=== PATIENT | male | born 1955 | race Caucasian/White ===

== ENCOUNTER 2018-05-16 17:28 | Emergency (ER) | payer OTHER ==
[~2018-05-16] VITALS: Ht 162.6 cm; Wt 65.3 kg
[2018-05-16 17:35] VITALS: Ht 162.6 cm; Wt 65.3 kg
[2018-05-16] MEDS ORDERED: IBUPROFEN 800 MG TAB PO ONE (18:30)
[2018-05-16] MEDS ORDERED: IBUP-1542 PO (19:24)
--- NOTE | 2018-05-16 19:53 | ERD ---
ER Documentation Chief Complaint Chief Complaint possible dislocation right shoulder s/p fall HPI Patient is a 63-year-old male with diabetes who presents with right shoulder pain. He said that he was running and fell onto his right shoulder. He has had no treatment as of yet. This happened 50 minutes ago. The patient is right- handed. Upon review of old medical records this is the patient's first visit to the emergency department. ROS All systems reviewed and are negative except as per history of present illness. Medications Home Meds Active Scripts Ibuprofen* (Motrin*) 600 Mg Tab, 600 MG PO Q6H PRN for PAIN AND OR ELEVATED TEMP, #30 TAB Prov:BEAU ACBRAL MD 05/16/18 Allergies Allergies: Coded Allergies: No Known Allergy (Unverified , 05/16/18) PMhx/Soc Medical and Surgical Hx: pt denies Surgical Hx History of Surgery: No Anesthesia Reaction: No Hx Neurological Disorder: No Hx Respiratory Disorders: No Hx Cardiac Disorders: No Hx Psychiatric Problems: No Hx Miscellaneous Medical Probl: Yes (DMII) Hx Alcohol Use: No Hx Substance Use: No Hx Tobacco Use: No Smoking Status: Never smoker FmHx Family History: No diabetes Physical Exam Vitals Vital Signs Date Temp Pulse Resp B/P (MAP) Pulse Ox O2 O2 Flow FiO2 Time Delivery Rate 05/16/18 98.1 106 18 111/84 97 17:35 (93) Physical Exam Const: No acute distress Head: Atraumatic Eyes: Normal Conjunctiva ENT: Normal External Ears, Nose and Mouth. Neck: Full range of motion. No meningismus. Resp: Clear to auscultation bilaterally Cardio: Regular rate and rhythm, no murmurs Abd: Soft, non tender, non distended. Normal bowel sounds Skin: No petechiae or rashes Back: No midline or flank tenderness Ext: AC joint on the right shoulder is elevated compared to the left, no obvious shoulder dislocation Neur: Awake and alert, all 3 nerve roots of the right upper extremity are intact Psych: Normal Mood and Affect Results 24 hrs Current Medications Medications Dose Sig/Fiordaliza Start Time Status Last (Trade) Ordered Route PRN Stop Time Admin Dose Reason Admin Ibuprofen 800 mg ONCE ONCE 05/16/18 DC 05/16/18 (Motrin) PO 18:30 18:24 05/16/18 18:31 Procedures/MDM X-ray of the right shoulder shows AC joint separation per radiology. Splint Note Type: Shoulder immobilizer Location: Right upper extremity Indication: AC joint separation Splint Assessment: Neurovascularly intact post splint placement with good fit. Patient is a 63-year-old male with diabetes who presents with a trip and fall. He has a right-sided AC joint separation. I do not believe the patient has other serious traumatic injury. The patient was placed in a shoulder immobilizer. The patient will be discharged and can follow-up with Dr. Meadwos from orthopedic surgery within 1 week. Patient can return sooner for any worsening symptoms. Departure Diagnosis: Primary Impression: Acromioclavicular joint separation Encounter type: initial encounter Laterality: right Qualified Codes: S43.101A - Unspecified dislocation of right acromioclavicular joint, initial encounter Additional Impression: Shoulder pain Chronicity: acute Laterality: right Qualified Codes: M25.511 - Pain in right shoulder Condition: Fair Patient Instructions: Ac Joint Sprain Referrals: SHEY MEADOWS MD Additional Instructions: Llame al doctor MARGE y lorraine audrey JOSE PARA DENTRO DE 1-2 REYES.Dgale a la secretaria que nosotros le instruimos hacer esta jose.Avise o llame si mayo condicin se empeora antes de la jose. Regresa aqui si peor o no mejor. BEAU CABRAL MD May 16, 2018 19:53
[2018-05-16 19:57] VITALS: BP 130/76; PULSE 88; RESP 15
== END 2018-05-16 20:00 | disposition home or self-care (01) ==
LOC: E/R 17:28
DX: S43.101A Unspecified dislocation of right acromioclavicular joint, initial encounter (principal); E11.9 Type 2 diabetes mellitus without complications; W18.39XA Other fall on same level, initial encounter; Y92.9 Unspecified place or not applicable
CPT/HCPCS: 29105; 73030; Z7502; Z7610

== ENCOUNTER 2018-06-24 04:09 | Inpatient (IN) | payer OTHER ==
[2018-06-24] VITALS (18 sets, daily range): BP systolic 104–154; BP diastolic 62–84; PULSE 9–113; RESP 14–28; Ht 160 cm; Wt 69.2 kg
[~2018-06-24] VITALS: Ht 160 cm; Wt 69.2 kg
[~2018-06-24 04:09] MED LIST: IBUP-1542 PO
[2018-06-24] MEDS ORDERED: ONDANSETRON 4 MG INJ IV ONE (06:26)
--- NOTE | 2018-06-24 06:40 | ERD ---
ER Documentation Chief Complaint Chief Complaint abdominal pain since yesterday HPI This is a 63-year-old male with a past medical history of hyperlipidemia, prediabetes who is presenting with 1 day of progressive worsening epigastric and right sided abdominal pain. The patient reports last eating an Irish sub- sandwich from [employer] yesterday. He does not recall eating anything else out of the ordinary. The patient's pain developed a few hours later. The patient describes the pain as waxing and waning, moderate, cramping and aching. The patient's pain is in the right upper and lower abdomen in addition to the epigastrium. The patient endorses nausea with one episode of clear vomiting yesterday. He denies constipation or diarrhea. He denies any black or bloody or tarry stools. He denies any hematemesis or hemoptysis. He denies any dysuria or hematuria or urgency or frequency. The patient denies fever or chills. The patient has had no headache or vision changes. The patient does not endorse neck or back pain. The patient denies lightheadedness or dizziness. The patient has had no chest pain or trouble br eathing. The patient has had no focal deficits. The patient has had no weakness or numbness or tingling to the face or extremities. ROS All systems reviewed and are negative except as per history of present illness. Medications Home Meds Discontinued Scripts Ibuprofen* (Motrin*) 600 Mg Tab, 600 MG PO Q6H PRN for PAIN AND OR ELEVATED TEMP, #30 TAB Prov:BEAU CABRAL MD 05/16/18 Allergies Allergies: Coded Allergies: No Known Allergy (Unverified , 06/24/18) PMhx/Soc History of Surgery: No Anesthesia Reaction: No Hx Neurological Disorder: No Hx Respiratory Disorders: No Hx Cardiac Disorders: Yes (Prediabetes, hyperlipidemia) Hx Psychiatric Problems: No Hx Miscellaneous Medical Probl: No Hx Alcohol Use: Yes (Occasional) Hx Substance Use: No Hx Tobacco Use: No Smoking Status: Never smoker FmHx Family History: No diabetes Physical Exam Vitals Vital Signs Date Temp Pulse Resp B/P (MAP) Pulse Ox O2 O2 Flow FiO2 Time Delivery Rate 06/24/18 78 14 149/78 98 Room Air 08:50 (101) 06/24/18 66 14 144/77 98 Room Air 05:45 (99) 06/24/18 63 15 148/75 98 Room Air 05:00 (99) 06/24/18 98.3 63 18 160/88 99 04:12 (112) Physical Exam Const: No apparent distress, well-developed, well-nourished Head: Normocephalic, Atraumatic Eyes: Normal Conjunctiva. Extraocular movements intact. Pupils equal, round and reactive to light ENT: Normal External Ears, Nose and Mouth. Neck: Full range of motion. No meningismus. Resp: Clear to auscultation bilaterally, No wheezes, rales or rhonchi Cardio: Regular rate and rhythm. No murmurs, rubs or gallops Abd: Soft, non distended. Right-sided abdominal tenderness. No guarding or rebound. Normal bowel sounds Skin: No petechiae or rashes Back: No midline tenderness. No CVA tenderness. Ext: No cyanosis, or edema Neur: Awake and alert, oriented 4. Cranial nerves intact. No facial droop. Normal strength, sensation and coordination. Psych: Normal Mood and Affect Result Diagram: 06/24/1853206/24/18 0533 Results 24 hrs Laboratory Tests Test 06/24/18 05:33 White Blood Count 5.7 10^3/ul Red Blood Count 4.96 10^6/ul Hemoglobin 13.7 g/dl Hematocrit 42.0 % Mean Corpuscular Volume 84.7 fl Mean Corpuscular Hemoglobin 27.6 pg Mean Corpuscular Hemoglobin Concent 32.6 g/dl Red Cell Distribution Width 13.8 % Platelet Count 214 10^3/UL Mean Platelet Volume 10.3 fl Immature Granulocytes % 0.700 % Neutrophils % 75.1 % Lymphocytes % 17.7 % Monocytes % 5.3 % Eosinophils % 0.5 % Basophils % 0.7 % Nucleated Red Blood Cells % 0.0 /100WBC Immature Granulocytes # 0.040 10^3/ul Neutrophils # 4.3 10^3/ul Lymphocytes # 1.0 10^3/ul Monocytes # 0.3 10^3/ul Eosinophils # 0.0 10^3/ul Basophils # 0.0 10^3/ul Nucleated Red Blood Cells # 0.0 10^3/ul Urine Color YELLOW Urine Clarity CLEAR Urine pH 7.0 Urine Specific [place] 1.024 Urine Ketones NEGATIVE mg/dL Urine Nitrite NEGATIVE mg/dL Urine Bilirubin NEGATIVE mg/dL Urine Urobilinogen NEGATIVE mg/dL Urine Leukocyte Esterase NEGATIVE Angel/ul Urine Hemoglobin NEGATIVE mg/dL Urine Glucose NEGATIVE mg/dL Urine Total Protein NEGATIVE mg/dl Sodium Level 139 mmol/L Potassium Level 3.7 mmol/L Chloride Level 100 mmol/L Carbon Dioxide Level 27 mmol/L Anion Gap 12 Blood Urea Nitrogen 16 mg/dl Creatinine 0.96 mg/dl Est Glomerular Filtrat Rate mL/min > 60 mL/min Glucose Level 140 mg/dl Calcium Level 9.3 mg/dl Total Bilirubin 0.2 mg/dl Direct Bilirubin 0.00 mg/dl Indirect Bilirubin 0.2 mg/dl Aspartate Amino Transf (AST/SGOT) 25 IU/L Alanine Aminotransferase (ALT/SGPT) 40 IU/L Alkaline Phosphatase 54 IU/L Total Protein 7.5 g/dl Albumin 4.3 g/dl Globulin 3.20 g/dl Albumin/Globulin Ratio 1.34 Lipase 94 U/L Current Medications Medications Dose Sig/Fiordaliza Start Time Status Last (Trade) Ordered Route PRN Stop Time Admin Dose Reason Admin Ondansetron 4 mg ONCE ONCE 06/24/18 DC 06/24/18 HCl (Zofran IV 06:26 07:06 Inj) 06/24/18 06:27 Sodium 1,000 ml @ Q1H ONCE 06/24/18 DC 06/24/18 Chloride 1,000 mls/hr IV 07:00 07:06 06/24/18 07:59 Famotidine 20 mg ONCE ONCE 06/24/18 DC 06/24/18 (Pepcid Iv) IV 07:00 07:06 06/24/18 07:01 40 ml ONCE ONCE 06/24/18 DC 06/24/18 Miscellaneous PO 07:00 07:05 Medication 06/24/18 07:01 (Gi Cocktail (2)) Morphine 4 mg ONCE STAT 06/24/18 DC 06/24/18 Sulfate IV 07:39 08:47 (morphine) 06/24/18 07:40 Piperacillin 100 ml @ ONCE ONCE 06/24/18 DC 06/24/18 Sod/ 200 mls/hr IVPB 08:00 08:47 Tazobactam 06/24/18 08:29 Sod Ondansetron 4 mg BRIDGE ORDER 06/24/18 HCl (Zofran PRN IV 09:30 06/25/18 Inj) NAUSEA/VOMITI 09:29 NG 650 mg ER BRIDGE 06/24/18 Acetaminophen PRN PO 09:30 06/25/18 (Tylenol .MILD PAIN 09:29 Tab) 1-3 OR TEMP Procedures/MDM MDM The patient's presentation warrants further investigation. Previous medical records, if available, were reviewed. LABS The patient's laboratory testing was obtained and reviewed. No emergent treatment was required unless described below. CBC: No E/o of systemic infection or severe anemia or thrombocytopenia. Mild normocytic anemia, nonemergent. Chemistry: No E/o severe acidosis or alkalosis or renal failure or liver disease or diabetic ketoacidosis. No evidence of obstructive cholestatic liver disease. Lipase: No E/o pancreatitis Urine: No E/o acute infection or hematuria IMAGING Imaging and Radiology interpretation reviewed. CT Abd/Pelvis FINDINGS: LUNG BASES: Slight bibasilar atalectasis. HEART: Top normal heart size. ABDOMEN: LIVER: 1.6 cm probable cyst in the lateral liver. GALLBLADDER AND BILE DUCTS: Unremarkable No calcified stones. No ductal dilation. PANCREAS: Unremarkable No ductal dilation. SPLEEN: Unremarkable No splenomegaly. ADRENALS: Unremarkable No mass. KIDNEYS AND URETERS: Unremarkable No hydronephrosis or renal calculi are seen. STOMACH AND BOWEL: Colonic diverticulosis without evidence of diverticulitis. No evidence for small bowel obstruction, free air, or abscess. PELVIS: APPENDIX: The appendix is significantly enlarged and elongated with dense material within and an appendicolith at the appendiceal orifice. The appendix measures up to 12 mm in diameter. There is not marked periappendiceal stranding. No free air or abscess is seen. BLADDER: Unremarkable No stones. REPRODUCTIVE: Enlarged prostate gland. Correlate with PSA level. ABDOMEN and PELVIS: INTRAPERITONEAL SPACE: See above. BONES/JOINTS: Mild degenerative change of the spine. Bilateral L5 pars defects with minimal anterolisthesis. SOFT TISSUES: Small fat-containing umbilical hernia. VASCULATURE: Mild atherosclerotic change of the abdominal vasculature. No evidence for aneurysm. LYMPH NODES: Unremarkable No enlarged lymph nodes. IMPRESSION: 1. Acute appendicitis without free air or abscess. 2. Enlarged prostate gland. Correlate with PSA level. Electronically viewed and signed by Physician Summer on 06/24/2018 07:19 US RUQ FINDINGS: The aorta and visualized inferior vena cava are unremarkable in appearance. The liver is homogeneous in echotexture and no focal liver lesions are seen. . There may be a small of sludge within the gallbladder but no gallstones were seen. No gallbladder wall thickening or pericholecystic fluid. No intra or extrahepatic biliary dilatation is seen. The common bile duct measures 5.8 mm in maximal dimension. The right kidney measures 10.4 cm. No hydronephrosis or renal calculi are seen. The pancreas is partially obscured by bowel gas. No ascites is seen. IMPRESSION: Study slightly limited by bowel gas. . Perhaps minimal sludge in the gallbladder. Electronically viewed and signed by Torri Palomino, Physician on 06/24/2018 07:23 TREATMENT/DISPOSITION The patient presents with waxing and waning cramping epigastric and right-sided abdominal pain. The patient has not had any abdominal surgeries in the past. Gastritis versus PUD versus GERD are possibilities, as the patient does drink alcohol. The patient was given Pepcid and a GI cocktail for this possible etiology. An ultrasound was completed to evaluate for possible cholelithiasis versus cholecystitis. It was negative. The patient also reports right lower quadrant abdominal pain, so a CAT scan was completed to evaluate for the possibility of appendicitis. The patient CT scan revealed appendicitis which will require treatment. The patient will be given a dose of Zosyn in the emergency department. General surgery will be called. The patient will require admission. The patient was also treated with IV fluids and Zofran for symptom control. The patient does not have any evidence of peritonitis. The patient does not have clinical symptoms concerning for mesenteric ischemia or ischemic colitis. The patient does not have left upper quadrant tenderness. I have low suspicion for pancreatitis. The patient does not have suprapubic tenderness. I have decreased suspicion for cystitis. The patient does not have any left lower quadrant tenderness, and I have low suspicion for diverticulosis or diverticulitis. The patient does not have any flank tenderness. The patient does not have gross hematuria. I have decreased suspicion for nephrolithiasis or renal colic. The patient does not have any palpable pulsatile mass or severe abdominal pain radiating to the back. I have low suspicion for aortic aneurysm, dissection or rupture. The patient is afebrile with no leukocytosis. I have low suspicion for sepsis and I do not feel the patient requires a full septic workup. Blood cultures will be sent off. At this time, I feel that the patient requires admission for further evaluation and management. Given the size and risk of perforation of the appendix, I do not feel the patient stable for transfer. The patient will be admitted to [facility] in accordance with the patient's insurance. The patient was accepted by Dr. Montes at 0845AM on June 24, 2018. Dr. Heredia, the on-call general surgeon, was consulted on the case. Disclaimer: Inadvertent spelling and grammatical errors are likely due to EHR/dictation software use and do not reflect on the overall quality of patient care. Note that the electronic time recorded on this note does not necessarily reflect the actual time of the patient encounter. Departure Diagnosis: Primary Impression: Appendicitis Appendicitis type: acute appendicitis Acute appendicitis type: with localized peritonitis Appendicitis gangrene presence: without gangrene Appendicitis perforation presence: without perforation Appendicitis abscess presence: without abscess Qualified Codes: K35.30 - Acute appendicitis with localized peritonitis, without perforation or gangrene Additional Impressions: Abdominal pain Abdominal location: generalized Qualified Codes: R10.84 - Generalized abdominal pain Nausea and vomiting Vomiting type: unspecified Vomiting Intractability: non-intractable Qualified Codes: R11.2 - Nausea with vomiting, unspecified Normocytic anemia Condition: Serious GEORGE DUARTE MD Jun 24, 2018 06:40
[2018-06-24] MEDS ORDERED: LIDOCAINE/MYLANTA 40 ML BTL PO ONE (07:00)
[2018-06-24] MEDS ORDERED: SOD CHLORIDE 0.9% 1,000 ML IV ONE (07:00)
[2018-06-24] MEDS ORDERED: FAMOTIDINE 20 MG INJ IV ONE (07:00)
[2018-06-24] MEDS ORDERED: morphine 4 MG/ML VIAL IV STA (07:39)
[2018-06-24] MEDS ORDERED: PIPER-TAZO 3.375 GM IV (PMX) 100 ML IVPB ONE (08:00)
[2018-06-24] MEDS ORDERED: ONDANSETRON 4 MG INJ IV PRN ×4 (09:30→22:00)
[2018-06-24] MEDS ORDERED: ACETAMINOPHEN 325 MG TAB PO PRN (09:30)
[2018-06-24] MEDS ORDERED: DEXTROSE 5%-0.45% NACL 1,000 ML IV SCH (10:12)
[2018-06-24] MEDS ORDERED: NACL 0.9% 3 ML SYG IV SCH (10:30)
--- NOTE | 2018-06-24 11:52 | HP ---
DATE OF ADMISSION: 06/24/2018 CHIEF COMPLAINT: Abdominal pain associated with nausea and vomiting. HISTORY OF PRESENT ILLNESS: This is a 63-year-old male with type 2 diabetes mellitus and hyperlipide mark, presented to Emergency Room with complaint of epigastric and right lower quadrant abdominal pain x1 day. The patient had 1 episode of vomiting. He reports nausea. The last bowel movement was the day prior to admission. CAT scan of the abdomen and pelvis showed enlarged appendix without free ai r or abscess. The white blood cell count was 5.7. PAST MEDICAL HISTORY: 1. Type 2 diabetes mellitus. 2. Hyperlipidemia. SOCIAL HISTORY: Patient lives at home. Denies tobacco use. Drinks alcohol on social occasions. PHYSICAL EXAMINATION: GENERAL: Well-developed, well-nourished male who is in no apparent distress. VITAL SIGNS: Stable. He is afebrile. HEENT: Extraocular muscles intact. Pupils equal and reactive to light bilaterally. Sclerae are ani cteric. Oropharynx is clear and moist. NECK: Supple, no JVD, no carotid bruits. LUNGS: Clear to auscultation bilaterally. CARDIAC: Regular rate and rhythm. No murmurs, rubs or gallops. ABDOMEN: soft. Epigastric and right lower quadrant tenderness to palpation. No rebound or guarding . Normoactive bowel sounds. EXTREMITIES: No clubbing, cyanosis, or edema. NEUROLOGICAL: Nonfocal. LABORATORY DATA: Hemoglobin is 13.7, platelet count is 214,000, white blood cell count of 5.7. Basi c metabolic panel is within normal limits. Liver function tests are normal. Lipase is 94. ASSESSMENT: A 63-year-old male with: 1. Acute appendicitis. 2. Type 2 diabetes mellitus. 3. Hyperlipidemia. PLAN: 1. Admit to med/surg, keep patient n.p.o. 2. IV Zosyn. 3. Surgical consultation was requested by the Emergency Room physician. Dictated By: JOSHUA BENITEZ/DWAYNE Conf#: [id number] DID#: [id number]
[2018-06-24] MEDS: morphine 2 MG INJ IV PRN ×2 (13:27→16:51)
[2018-06-24] MEDS: PIPER-TAZO 3.375 GM IV (PMX) 100 ML IVPB SCH ×2 (16:13→23:03)
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
[2018-06-24] MEDS ORDERED: BUPIVACAINE 0.5%/EPI (SDV) 30 ML INJ ONE (19:43)
[2018-06-24] MEDS ORDERED: DESFLURANE 15 MIN ONE (20:00)
[2018-06-24] MEDS ORDERED: LIDOCAINE 2% (SDV) 5 ML INJ ONE (20:00)
--- NOTE | 2018-06-24 20:05 | PREAC ---
Date/Time of Note Date/Time of Note DATE: 06/24/18 TIME: 20:04 Anesthesia Eval and Record Evaluation Time Pre-Procedure Interview DATE: 06/24/18 TIME: 20:04 Age 63 Sex male NPO: 8 hrs Preoperative diagnosis ACUTE APPENDICITIS Planned procedure LAP APPY Past Medical History Past Medical History: Includes Cardio: Dyslipidemia Endo: Diabetes Surgery & Anesthesia Issues No known issue Meds Anticoagulation: No Beta Verito within 24 hr: No Reason Beta Verito not given: Pt. not on B-Verito Discontinued Scripts Ibuprofen* (Motrin*) 600 Mg Tab, 600 MG PO Q6H PRN for PAIN AND OR ELEVATED TEMP, #30 TAB Prov:BEAU CABRAL MD 05/16/18 Current Medications Ondansetron HCl (Zofran Inj) 4 mg BRIDGE ORDER PRN IV NAUSEA/VOMITING Last administered on 06/24/18at 13:27; Admin Dose 4 MG; Start 06/24/18 at 09:30; Stop 06/25/18 at 09:29 Acetaminophen (Tylenol Tab) 650 mg ER BRIDGE PRN PO .MILD PAIN 1-3 OR TEMP; Start 06/24/18 at 09:30; Stop 06/25/18 at 09:29 Dextrose/Sodium Chloride 1,000 ml @ 100 mls/hr Q10H IV Last administered on 06/24/18at 10:37; Admin Dose 100 MLS/HR; Start 06/24/18 at 10:12 IV Flush (NS 3 ml) 3 ml PER PROTOCOL IV ; Start 06/24/18 at 10:30 Ondansetron HCl (Zofran Inj) 4 mg Q6H PRN IV NAUSEA/VOMITING; Start 06/24/18 at 10:30 Morphine Sulfate (morphine) 2 mg Q4H PRN IV .SEVERE PAIN 7-10 Last administered on 06/24/18at 16:51; Admin Dose 2 MG; Start 06/24/18 at 10:30 Piperacillin Sod/ Tazobactam Sod 100 ml @ 200 mls/hr Q8 IVPB Last administered on 06/24/18at 16:13; Admin Dose 200 MLS/HR; Start 06/24/18 at 14:00 Influenza Virus Vaccine Quadrival (Fluzone) 0.5 ml ONCE ONCE IM* ; Start 06/25/18 at 09:00; Stop 3/1/19 at 09:01 Meds reviewed: Yes Allergies Coded Allergies: No Known Allergy (Unverified , 06/24/18) Allergies Reviewed: Yes Labs/Studies Labs Reviewed: Reviewed by anesthesiologist Result Diagram: 06/24/1833 06/24/1833 Laboratory Tests 06/24/18 05:33 test: Negative Studies: ECG (NSR) Pre-procedure Exam Last vitals Vital Signs Date Temp Pulse Resp B/P (MAP) Pulse Ox O2 O2 Flow FiO2 Time Delivery Rate 06/24/18 99.7 82 18 134/71 96 20:00 (92) 06/24/18 Room Air 14:28 Airway: Adequate mouth opening, Adequate thyromental dist Mallampati: Mallampati II Teeth: Normal Lung: Normal Heart: Normal ASA Physical Status ASA physical status: 2 Emergency: E Planned Anesthetic General/MAC: ETT Planned Pain Management Parenteral pain med Pre-operative Attestations Prior to commencing anesthesia and surgery, the patient was re-evaluated, there was verification of: *The patient's identity *The results of appropriate recent lab work and preoperative vital signs *The above evaluation not changing prior to induction *Anesthetic plan, risk benefits, alternative and complications discussed with patient/family; questions answered; patient/family understands, accepts and wishes to proceed. Kentrell Garcia M.D. Jun 24, 2018 20:05
[2018-06-24] MEDS ORDERED: ONDANSETRON 4 MG INJ ONE (20:17)
[2018-06-24] MEDS ORDERED: FENTAnyl 50 MCG/ML VIAL ONE (20:17)
[2018-06-24] MEDS ORDERED: DEXAMETHASONE 4 MG/ML 5 ML INJ ONE (20:17)
[2018-06-24] MEDS ORDERED: NEOSTIGMINE 3 MG/3 ML SYRINGE ONE (20:17)
[2018-06-24] MEDS ORDERED: ROCURONIUM 50 MG INJ ONE (20:17)
[2018-06-24] MEDS ORDERED: CEFAZOLIN 1 GM INJ ONE (20:17)
[2018-06-24] MEDS ORDERED: MIDAZOLAM 1 MG/ML 2 ML INJ ONE (20:17)
[2018-06-24] MEDS ORDERED: PROPOFOL 20 ML ONE (20:17)
[2018-06-24] MEDS ORDERED: GLYCOPYRROLATE 0.4 MG INJ ONE (20:17)
[2018-06-24] MEDS ORDERED: OXYCODONE/ACETAMINOPHEN (5/325) TAB PO PRN ×2 (20:30)
[2018-06-24] MEDS ORDERED: MEPERIDINE 25 MG INJ IV PRN (20:30)
[2018-06-24] MEDS ORDERED: EPHEDrine SULFATE 50 MG/5 ML SYG IV PRN (20:30)
[2018-06-24] MEDS ORDERED: ALBUTEROL 0.083% (NEB) 2.5 MG/3 ML AMP HHN PRN (20:30)
[2018-06-24] MEDS ORDERED: MIDAZOLAM 1 MG/ML 2 ML INJ IV PRN (20:30)
[2018-06-24] MEDS ORDERED: FENTAnyl 50 MCG/ML VIAL IV PRN ×3 (20:30)
[2018-06-24] MEDS ORDERED: IPRATROPIUM (NEB) 0.5 MG/2.5 ML AMP HHN PRN (20:30)
[2018-06-24] MEDS ORDERED: DIPHENHYDRAMINE 50 MG INJ IV PRN (20:30)
[2018-06-24] MEDS ORDERED: hydrALAzine 20 MG INJ IV PRN (20:30)
[2018-06-24] MEDS ORDERED: HYDROmorphONE 1 MG/5 ML IV SYRINGE IV PRN ×3 (20:30)
[2018-06-24] MEDS ORDERED: TRIMETHOBENZAMIDE 100 MG/ML VIAL IM PRN (20:30)
[2018-06-24] MEDS ORDERED: LABETALOL HCL 20MG INJ IV PRN (20:30)
[2018-06-24] MEDS ORDERED: SUGAMMADEX SODIUM 200 MG/2 ML VIAL IV ONE (21:17)
--- NOTE | 2018-06-24 21:33 | OPR ---
Date/Time of Note Date/Time of Note DATE: 06/24/18 TIME: 21:28 Operative Report Free Text/Dictation Operative report Procedure Date: Jun 24, 2018 Preoperative Diagnosis Appendicitis Postoperative Diagnosis Gangrenous appendicitis Bilateral inguinal hernia Operation/Procedure Performed Laparoscopic appendectomy Surgeon Alecia Heredia MD see signature line Neurological Surgery Teacher None Anesthesia Type: general Anesthesiologist: Kentrell Garcia M.D. Estimated Blood Loss: 0 - 10 ml's Transfusion none Specimen Appendix Grafts/Implants none Tubes/Drains None Complications none Pt Condition Post Procedure: stable Disposition: PACU Indications Patient presented to the emergency room with worsening right-sided abdominal pain. CAT scan showed markedly dilated appendix without evidence of rupture surgical consultation was requested I saw the patient and agreed with the diagnosis and recommended urgent laparoscopic appendectomy. Risk benefits alternatives were discussed including possible need for conversion to open procedure. Procedure Description Patient brought to the operating placed supine position general she is administered with intubation patient prepped draped in sterile fashion orogastric tube inserted by anesthesia varies needle was used left upper quadrant Rubalcava's point insufflation delivered to maintain pneumoperitoneum 50 was mercury throughout the procedure. Small stab incision was made in the umbilicus and periumbilical hernia and a 5 mm trocar was inserted direct visualization with 30 femoral laparoscope the varies needle was identified and removed being sure there was no injuries or bleeding. An infraumbilical 5 mm trocar and a 12 mm supraumbilical trocar were inserted next in a similar fashion. Patient was placed in slight Trendelenburg and right side up position. Expiration of the right lower quadrant showed the appendix along the right gutter. Also noted there was a large direct and indirect hernia on the right and a moderate to large direct hernia on the left. The omentum overlying the appendix was retracted bluntly and there was some bleeding on the from a small omental vessel which was controlled with monopolar cautery. The base of the appendix was addressed first after suction irrigation and blunt dissection a window was able to be made at the base of the appendix and a [place] 35 mm vascular cartridge was used to divide the appendix at the base. Next the appendix was elevated bluntly from its fibrinous exudate and elevated to expose the mesoappendix which was then divided by taking 2 applications of the [place] vascular cartridge. A specimen bag was inserted through the suprapubic port the appendix placed in this and was brought through the port and the port reinserted. Final inspection and irrigation showed good hemostasis and staple line were intact without bleeding. The pneumoperitoneum was allowed to escape after insufflation halted all trochars were removed the skin incision closed with 4-0 Monocryl Dermabond for dressing was explained the operative brought recovery in stable condition. Needle count and sponge correct x2 ALECIA HEREDIA MD Jun 24, 2018 21:33
[2018-06-24] MEDS ORDERED: HYDROCODONE/APAP (5/325) TAB PO PRN (22:00)
[2018-06-24] MEDS ORDERED: METOCLOPRAMIDE 10 MG INJ IV PRN (22:00)
[2018-06-24] MEDS ORDERED: HYDROmorphONE 0.5 MG/0.5 ML SYG IV PRN (22:00)
--- NOTE | 2018-06-24 22:17 | PAC ---
Date/Time of Note Date/Time of Note DATE: 06/24/18 TIME: 22:17 Post-Anesthesia Notes Post-Anesthesia Note Last documented vital signs Vital Signs Date Temp Pulse Resp B/P (MAP) Pulse Ox O2 O2 Flow FiO2 Time Delivery Rate 06/24/18 99.7 82 18 134/71 96 20:00 (92) 06/24/18 Room Air 14:28 Activity: WNL Respiratory function: WNL Cardiovascular function: WNL Mental status: Baseline Pain reasonably controlled: Yes Hydration appropriate: Yes Nausea/Vomiting absent: Yes Kentrell Garcia M.D. Jun 24, 2018 22:17
[2018-06-24] MEDS: D5W-0.45 NACL + KCL 20 MEQ 1,000 ML IV SCH (23:05)
[2018-06-25 02:17] VITALS: BP 98/56; PULSE 91; RESP 18
[2018-06-25] MEDS: PIPER-TAZO 3.375 GM IV (PMX) 100 ML IVPB SCH (06:08)
[2018-06-25] MEDS ORDERED: ENOXAPARIN 40 MG/0.4 ML SYG SC SCH (07:00)
[2018-06-25] MEDS: D5W-0.45 NACL + KCL 20 MEQ 1,000 ML IV SCH (07:33)
[2018-06-25 07:42] VITALS: BP 98/60; PULSE 77; RESP 18
[2018-06-25] MEDS ORDERED: LORAZEPAM 2 MG INJ IV PRN (08:00)
[2018-06-25] MEDS ORDERED: INFLUENZA VIRUS VACCINE 0.5 ML (DISPENSING) IM* ONE (09:00)
[2018-06-25] MEDS ORDERED: HYDR-3601 PO (10:00)
--- NOTE | 2018-06-25 10:01 | PDOCDIS ---
Discharge Instructions CONDITION [id number] Patient Condition: [id number] Good HOME CARE INSTRUCTIONS: [id number] Diet Instructions: [id number] Regular [id number] Your diet recommendation is: Mhncz2p advance as tolerated ACTIVITY: [id number] Activity Restrictions: Mcpyn5a Avoid heavy lifting FOLLOW UP/APPOINTMENTS Follow-up Plan Dr Heredia 1 week pcp 1 week JOSHUA BIRMINGHAM MD Jun 25, 2018 10:01
[2018-06-25] MEDS ORDERED: AMOX1TAB10 PO (10:07)
[2018-06-25] MEDS ORDERED: CELE200C PO (10:08)
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
== END 2018-06-25 11:30 | disposition home or self-care (01) | DRG 343 ==
LOC: E/R 04:09 → 2NE 09:13
PROVIDERS: ADMIT Internal Medicine; ATTEND Internal Medicine
PROC: 0DTJ4ZZ Resection of Appendix, Percutaneous Endoscopic Approach (ICD-10-PCS; principal; 2018-06-24 22:00)
DX: K35.80 Unspecified acute appendicitis (principal); E11.9 Type 2 diabetes mellitus without complications; E78.5 Hyperlipidemia, unspecified
CPT/HCPCS: 36415; 74176; 76705; 80053; 81003; 83690; 85025; 87040; 88304; 90686; 96374; 96375; J0690; J1100; J1170; J1650; J2250; J2270; J2405; J2543; J2710; J3010; J3480; J7030; J7042